=== PATIENT | male | born 1945 | race Caucasian/White ===

== ENCOUNTER 2017-02-21 11:40 | Emergency (ER) | payer MEDICARE ==
[~2017-02-21 11:40] MED LIST: ADVIL200 M1 PO; DAPTOMYCIN IV; LANTUS100 UNITS/; LEVOTHROID150 MCG PO; LIPITOR20 MG PO; LISINOPRIL5 MG PO; METFORMIN PO; NOVOLOG100 U/ML; PLAVIX PO; QUININE PO; VICODIN 5/1 TAB 5/50 PO
== END 2017-02-21 17:02 | disposition expired ==
LOC: CED 11:40
DX: I46.9 Cardiac arrest, cause unspecified (principal); Z91.013 Allergy to seafood; Z88.1 Allergy status to other antibiotic agents; Z79.01 Long term (current) use of anticoagulants; Z79.4 Long term (current) use of insulin; Z79.899 Other long term (current) drug therapy
CPT/HCPCS: 92950; 99285; J0171